=== PATIENT | female | born 1940 | race Caucasian/White ===

== ENCOUNTER 2019-05-31 08:29 | Day surgery (SDC) ==
--- NOTE | 2019-05-19 08:19 | EKG Report ---
Test Performed on : 05/19/2019 08:10:44 AM Test Reason : PAT Blood Pressure : / mmHG Vent. Rate : 059 BPM Atrial Rate : 059 BPM P-R Int : 184 ms QRS Dur : 112 ms QT Int : 410 ms P-R-T Axes : 066 079 087 degrees QTc Int : 405 ms Sinus bradycardia. Otherwise normal ECG No previous ECGs available Confirmed by Ritesh Nunez MD ([id number]) on 05/19/2019 9:14:31 AM
[2019-05-19 08:23] LABS: URINE SOURCE CLEAN CATCH
[2019-05-19 08:39] LABS: BASO# 0.04 X1000 (0.0-0.2); BASO% 0.5 % (0.0-0.8); EOS# 0.38 X1000 (0.0-0.7); EOS% 4.8 % (0.0-10.0); HEMATOCRIT 38.7 % (37.0-47.0); HEMOGLOBIN 13.3 g/dL (12.0-16.0); IMM GRAN# 0.04 X1000 (0.0-0.04); IMM GRAN% 0.5 % (0.0-0.5); LYMPH# 2.24 X1000 (1.2-3.4); LYMPH% 28.3 % (20.5-51.1); MCH 30.6 PG (27-31); MCHC 34.4 g/dL (33-37); MCV 89.2 FL (81-99); MONO# 0.81 X1000 (0.11-0.59); MONO% 10.2 % (1.7-9.3); MPV 10.6 FL (7.4-10.4); NEUT% 55.7 % (42.2-75.2); PLT 230 X1000 (130-400); RBC 4.34 XMIL (4.2-5.4); WBC 7.91 X1000 (4.8-10.8)
[2019-05-19 08:43] LABS: BILIRUBIN URINE NEGATIVE (NEGATIVE); BLOOD URINE NEGATIVE (NEGATIVE); COLOR YELLOW; GLUCOSE URINE NEGATIVE (NEGATIVE); KETONE URINE NEGATIVE (NEGATIVE); LEUKOCYTES URINE NEGATIVE (NEGATIVE); NITRITE URINE NEGATIVE (NEGATIVE); PH URINE 7.5; PROTEIN URINE NEGATIVE (NEGATIVE); SP GRAVITY URINE 1.016; TURBIDITY URINE TURBID (CLEAR); UROBILINOGEN URINE NORMAL (NORMAL)
[2019-05-19 08:45] LABS: INR 0.95; PROTIME 13.4 Seconds (11.0-16.0)
[2019-05-19 08:46] LABS: PTT 29.9 Seconds (22.3-41.8); UR EPITHELIAL CELLS <10 /HPF (<10); URINE BACTERIA NEGATIVE /HPF; URINE RBC <10 /HPF (<10); URINE WBC <10 /HPF (<10)
[2019-05-19 08:52] LABS: HEMOGLOBIN A1C 5.7 % (4.8-6.0)
[2019-05-19 09:27] LABS: ALBUMIN 4.1 g/dL (3.5-5.0); CALCIUM 12.2 mg/dL (8.8-10.2); POTASSIUM 3.3 mmol/L (3.5-5.1)
[2019-05-31] MEDS ORDERED: REGLAN ONE (09:07)
[2019-05-31] MEDS ORDERED: PEPCID ONE (09:07)
[2019-05-31] MEDS ORDERED: LYRICA ONE (09:07)
[2019-05-31] MEDS ORDERED: COLACE ONE (09:07)
[2019-05-31] MEDS ORDERED: KEFZOL 1 GM/D5W 1 GM/50 ML IVPB ONE (09:08)
[2019-05-31] MEDS ORDERED: LR 1,000 ML ONE (09:08)
[2019-05-31] MEDS ORDERED: DIPRIVAN 1% ONE ×3 (09:33→13:03)
[2019-05-31] MEDS ORDERED: MARCAINE 0.25% PF ONE (11:30)
[2019-05-31] MEDS ORDERED: VANCOMYCIN ONE (11:30)
[2019-05-31] MEDS ORDERED: CYKLOKAPRON 1,000 MG/NS 1,000 MG/100 ML IVPB ONE ×2 (11:30→11:35)
[2019-05-31] MEDS ORDERED: SODIUM CHLORIDE 0.9% ONE (11:30)
[2019-05-31] MEDS ORDERED: TORADOL ONE (11:30)
[2019-05-31] MEDS ORDERED: DURAMORPH ONE (11:30)
[2019-05-31] MEDS ORDERED: FENTANYL ONE (11:51)
[2019-05-31] MEDS ORDERED: OFIRMEV 1000 MG/ISOTONIC SOLN 1,000 MG/100 ML BOTTLE ONE (12:35)
[2019-05-31] MEDS ORDERED: ZOFRAN ONE (12:35)
[2019-05-31] MEDS ORDERED: DECADRON ONE (12:35)
[2019-05-31 12:46] LABS: URINE SOURCE CATH
[2019-05-31 12:49] LABS: BILIRUBIN URINE NEGATIVE (NEGATIVE); BLOOD URINE NEGATIVE (NEGATIVE); COLOR YELLOW; GLUCOSE URINE NEGATIVE (NEGATIVE); KETONE URINE NEGATIVE (NEGATIVE); LEUKOCYTES URINE NEGATIVE (NEGATIVE); NITRITE URINE NEGATIVE (NEGATIVE); PH URINE 5.5; PROTEIN URINE NEGATIVE (NEGATIVE); SP GRAVITY URINE 1.018; TURBIDITY URINE CLEAR (CLEAR); UR EPITHELIAL CELLS <10 /HPF (<10); URINE BACTERIA 1+ /HPF; URINE RBC <10 /HPF (<10); URINE WBC <10 /HPF (<10); UROBILINOGEN URINE NORMAL (NORMAL)
[2019-05-31] MEDS ORDERED: EXPAREL 1.3% ONE (13:07)
[2019-05-31] MEDS ORDERED: NEOSPORIN G.U. IRRIGANT ONE (13:07)
[2019-05-31] MEDS ORDERED: NS 1,000 ML ONE (14:08)
[2019-05-31] MEDS ORDERED: MORPHINE IV PRN ×3 (15:30)
[2019-05-31] MEDS ORDERED: OXY IR PO PRN ×2 (15:30)
[2019-05-31] MEDS: NS 1,000 ML IV SCH ×2 (15:30→18:21)
[2019-05-31] MEDS ORDERED: ZOFRAN ODT PO PRN (15:30)
[2019-05-31] MEDS ORDERED: MILK OF MAGNESIA PO PRN (15:30)
[2019-05-31] MEDS ORDERED: ZOFRAN IV PRN (15:30)
--- NOTE | 2019-05-31 16:59 | OPERATIVE NOTE ---
PROCEDURE DATE: 05/31/2019 PREOPERATIVE DIAGNOSIS: Right knee degenerative joint disease. POSTOPERATIVE DIAGNOSIS: Right knee degenerative joint disease. PROCEDURE PERFORMED: Right total knee arthroplasty using [facility] size 7 femoral component, size 6 tibial base plate, a 10 mm articular component, and a 29 mm patellar component. ANESTHESIA: Spinal. SURGEON: Darian Collins MD. CRM SYSTEM ADMINISTRATOR: MARGARITA Alvarez who was present and was necessary for successful completion of the case. He was present throughout the case and assisted with exposure, placement of the implants, and closure, as well as decision making. BLOOD LOSS: Minimal. DRAINS: Hemovac x1. TOURNIQUET TIME: Approximately an hour and a half. DESCRIPTION OF PROCEDURE: The patient was brought to the operative suite and placed in supine position. After successful administration of spinal anesthesia, a well-padded tourniquet was placed on the right proximal thigh. Right lower extremity was prepped and draped in the usual sterile fashion. The leg was exsanguinated. Tourniquet insufflated to 350 torr. A longitudinal incision was made beginning at the superior pole of the patella and extended distally to the tibial tuberosity. A medial arthrotomy was then made and then the medial capsule was elevated off the medial tibial plateau. The ACL, PCL, medial meniscus, lateral meniscus were excised. A drill was entered into the center of the distal femur. Intramedullary guide was placed. Distal cutting block was pinned in place. Distal cut was made with an oscillating saw. Marginal osteophytes were removed with a rongeur. Attention was directed to the tibia. A drill was entered into the center of the tibia. Intramedullary guide was placed. Alignment was checked with drop bryce referencing off the anterior cortex of the tibia and the second ray of the foot and taking 4 mm off the low side the tibia. The tibial cutting block was pinned in place. The articular surface of the tibial plateau was removed with an oscillating saw. Marginal osteophytes were removed with a rongeur. Extension gap was checked and was found to be balanced at 10 mm. The flexion gap was inset to 19 mm to account for the 9 mm of the posterior condyle of the implant. Then once it was positioned and rotation was set, it was pinned. It was sized to a size 7 and a size 7 guide was then pinned into place. The anterior cuts, chamfer cuts, and posterior condylar cuts were made with an oscillating saw. Marginal osteophytes were removed with a rongeur. A box cutting block was pinned in place. Box cut was made a box osteotome and an oscillating saw. Posterior condylar osteophytes were removed the curved osteotome and a rongeur. Attention was then directed to the tibia. Tibia was sized to a size 6. A size 6 guide was used for the fin punch. The tibial trial, femoral trial, and 10 mm articular insert were placed and taken through range of motion and found to have excellent alignment, balancing, and range of motion. Attention was then directed to patella and 9 mm of the articular surface of the patella was removed with an oscillating saw. The patella was sized to size 29. A size 29 guide was used to drill peg holes. Lateral facet was chamfered 30 to 45 degrees. Patella trial was placed, taken through range of motion, and found to have excellent patella tracking. All trials were then removed. The knee was copiously irrigated and dried, being certain all bone debris was removed. The tibial component, femoral component, and the patella component were cemented into place, excess cement being removed with a [place]. Once the cement had hardened, excess cement was again removed with an osteotome. The knee was again copiously irrigated and dried, being certain all bone and cement debris were removed. The trial articular insert was removed. The tourniquet was deflated and hemostasis was obtained with electrocautery. The knee was copiously infiltrated with Exparel, including the posterior capsule, anterior capsule, medial and lateral collateral ligaments, anterior musculature, and subcutaneous tissue. The definitive 10 mm articular insert was placed. A drain was placed exiting superolaterally and buried in the lateral gutter. The medial arthrotomy was closed with #1 Vicryl. Skin edge approximated with 2-0 Vicryl. Skin was closed with Prineo and a sterile dressing was applied. The patient tolerated the procedure well without complication. At the end the procedure, all counts were correct x2. The patient was transferred to the recovery room in stable condition. cc: Darian Collins MD
[2019-05-31] MEDS: ULTRAM PO SCH (18:17)
[2019-05-31] MEDS: TYLENOL PO SCH (18:17)
[2019-05-31] MEDS: SYSTANE EYE DROPS BOTH EYES SCH ×2 (18:20→21:53)
[2019-05-31] MEDS: LYRICA PO SCH (21:50)
[2019-05-31] MEDS: PERIDEX MT SCH (21:50)
[2019-05-31] MEDS: COREG PO SCH (21:51)
[2019-05-31] MEDS: LOZOL PO SCH (21:52)
[2019-05-31] MEDS: ZANTAC PO SCH (21:52)
[2019-05-31] MEDS: KLOR-CON PO SCH (21:52)
[2019-05-31] MEDS: COLACE PO SCH (21:52)
[2019-05-31] MEDS: KEFZOL 2 GM/D5W 2 GM/50 ML IVPB IV SCH (21:53)
[2019-06-01] MEDS: TYLENOL PO SCH ×2 (03:00→09:37)
[2019-06-01] MEDS: ULTRAM PO SCH ×2 (03:00→09:38)
[2019-06-01] MEDS: KEFZOL 2 GM/D5W 2 GM/50 ML IVPB IV SCH (04:53)
[2019-06-01 06:17] LABS: HEMATOCRIT 32.1 % (37.0-47.0)
[2019-06-01 06:44] LABS: CREATININE 1.1 mg/dL (0.5-0.9); POTASSIUM 3.2 mmol/L (3.5-5.1)
[2019-06-01] MEDS ORDERED: CELEBREX PO SCH (09:00)
[2019-06-01] MEDS ORDERED: VITAMIN D PO SCH (09:00)
[2019-06-01] MEDS ORDERED: METAMUCIL PO SCH (09:00)
[2019-06-01] MEDS ORDERED: CENTRUM SILVER PO SCH (09:00)
[2019-06-01] MEDS ORDERED: TRILIPIX PO SCH (09:00)
[2019-06-01] MEDS ORDERED: SINGULAIR PO SCH (09:00)
[2019-06-01] MEDS ORDERED: DECADRON IV ONE (09:00)
[2019-06-01] MEDS ORDERED: ASPIRIN PO SCH (09:00)
[2019-06-01] MEDS ORDERED: NORVASC PO SCH (09:00)
[2019-06-01] MEDS ORDERED: PEPCID PO SCH (09:00)
[2019-06-01] MEDS ORDERED: PRAVACHOL PO SCH (09:00)
--- NOTE | 2019-06-01 09:27 | ORTHOPAEDICS PROGRESS NOTE ---
DATE: 05/31/2019 SUBJECTIVE: Tessie Hadlye is a 78-year-old female who is postoperative day 1 from a right total knee. She has no complaints. OBJECTIVE: She is a well-developed, well-nourished female. She is alert, oriented, and cooperative with the exam. Her hematocrit is 32. Her hemoglobin is 11. Her leg is neurovascularly intact without sign of infection or deep venous thrombosis. ASSESSMENT: Stable right total knee arthroplasty. PLAN: We will discontinue her drain, fluids IV and [place] and get her up with therapy today. If she does well, she can be discharged home after lunch. cc: Darian Collins MD
[2019-06-01] MEDS: LOZOL PO SCH (09:36)
[2019-06-01] MEDS: COREG PO SCH (09:37)
[2019-06-01] MEDS: COLACE PO SCH (09:37)
[2019-06-01] MEDS: ZANTAC PO SCH (09:37)
[2019-06-01] MEDS: LYRICA PO SCH (09:37)
[2019-06-01] MEDS: KLOR-CON PO SCH (09:38)
[2019-06-01] MEDS: PERIDEX MT SCH (09:38)
[2019-06-01] MEDS: SYSTANE EYE DROPS BOTH EYES SCH (09:38)
[2019-06-01 13:24] VITALS: BP 150/72
--- NOTE | 2019-06-01 17:56 | DISCHARGE SUMMARY ---
ADMISSION DATE: 05/31/2019 DISCHARGE DATE: 06/01/2019 DISCHARGE DIAGNOSIS: Right knee degenerative joint disease status post right total knee arthroplasty. DISCHARGE MEDICATIONS: See discharge med list. DISPOSITION: The patient discharged home with home health physical therapy. Instructed to return for any signs or symptoms of infection or deep venous thrombosis. Instructed to return to see Dr. Collins by next . HOSPITAL COURSE: On the day of admission, patient underwent a right total knee arthroplasty. Her postoperative course was unremarkable. At discharge, she is afebrile, tolerating a regular diet, ambulating well with physical therapy. Her wound is clean, dry, and intact without sign of infection. She is discharged home in stable condition with instructions to follow up as described above. cc: Darian Collins MD
[2019-06-02] MEDS ORDERED: XARELTO PO SCH (06:00)
== END 2019-06-01 16:15 | disposition home or self-care (01) ==
LOC: OR 08:29 → 4N 08:29 → OR 06-01 16:15
PROVIDERS: ATTEND Orthopaedic Surgery